=== PATIENT | male | born 1945 | race Caucasian/White ===

== ENCOUNTER 2017-08-28 15:30 | Inpatient (IN) | payer MEDICARE ==
[~2017-08-28] VITALS: Ht 172.7 cm; Wt 93.9 kg
[2017-08-28 15:51] VITALS: BP 106/69
[2017-08-28] MEDS ORDERED: ATOR20TA65 PO (15:56)
[2017-08-28] MEDS ORDERED: ALFU10TA18 PO (15:56)
[2017-08-28] MEDS ORDERED: DICL75TA5 PO (15:56)
[2017-08-28 15:58] LABS: BASOPHILS % (AUTO) 0.6 % (0.0-5.0); HEMATOCRIT 43.2 % (42-54); LYMPHOCYTES % (AUTO) 18.5 % (21.0-51.0); MEAN CORPUSCULAR HEMOGLOBIN 29.8 pg (27.0-33.0); MEAN CORPUSCULAR HGB CONC 34.3 g/dL (32.0-36.0); MEAN CORPUSCULAR VOLUME 86.9 fL (79-99); MONOCYTES % (AUTO) 7.6 % (3.0-13.0); NEUTROPHILS % (AUTO) 70.3 % (40.0-77.0); PLATELET COUNT (AUTO) 341 K/uL (130-400); RED BLOOD CELL COUNT(AUTO) 4.98 MIL/uL (4.50-6.20); RED CELL DISTRIBUTION WIDTH 13.5 % (11.0-15.5); WHITE BLOOD COUNT (AUTO) 6.5 K/uL (4.8-10.8)
[2017-08-28 16:14] LABS: POTASSIUM 4.1 mmol/L (3.5-5.1)
[2017-08-28 16:18] LABS: PARTIAL THROMBOPLASTIN TIME 27.2 SEC (26.3-35.5); PROTHROMBIN TIME 10.5 SEC (9.6-11.6)
[2017-08-28 16:24] LABS: APPEARANCE,URINE Clear (CLEAR); BILIRUBIN,URINE Negative (NEGATIVE); COLOR,URINE Yellow (YELLOW); GLUCOSE, URINE (UA) Negative (NEGATIVE); KETONES,URINE Negative (NEGATIVE); LEUKOCYTE ESTERASE ,URINE Moderate (NEGATIVE); NITRATE,URINE Negative (NEGATIVE); OCCULT BLOOD,URINE Negative (NEGATIVE); PH,URINE 5.5 (5.0-8.0); PROTEIN,URINE Negative (NEGATIVE)
[2017-08-28 17:26] LABS: BACTERIA,URINE Few /HPF (None Seen); MUCUS,URINE Rare LPF (None Seen); RBC,URINE 0-1 /HPF (0-1); SQUAMOUS EPITHELIAL CELL,UR Rare /LPF (0-2)
[2017-08-31] VITALS (16 sets, daily range): BP systolic 103–127; BP diastolic 62–85
[2017-08-31] MEDS ORDERED: GENTAMICIN SULFATE 240 MG in SODIUM CHLORIDE 0.9% 100 ML IV SCH (09:00)
[2017-08-31] MEDS ORDERED: LACTATED RINGERS 1000ML 1,000 ML IV ONE (12:49)
[2017-08-31] MEDS: CEFAZOLIN SODIUM 1 GM VIAL IVP SCH ×2 (13:15→16:00)
[2017-08-31] MEDS ORDERED: KETOROLAC TROMETHAMINE 15MG/ML ONE (14:55)
[2017-08-31] MEDS ORDERED: ACETAMINOPHEN EXTRA STRENGTH 500 MG TABLET ONE (14:55)
[2017-08-31] MEDS ORDERED: CELECOXIB 200 MG CAP ONE (14:55)
[2017-08-31] MEDS ORDERED: OXYCODONE HCL 10 MG TAB.SR.12H PO ONE (14:56)
[2017-08-31] MEDS ORDERED: DEXAMETHASONE SOD PHOSPHATE 10MG/ML 1ML VIAL ONE (15:47)
[2017-08-31] MEDS ORDERED: SUCCINYLCHOLINE 200MG/10ML SYR ONE (15:47)
[2017-08-31] MEDS ORDERED: LIDOCAINE PF 2% 5ML ABBOJECT ONE (15:47)
[2017-08-31] MEDS ORDERED: ONDANSETRON HCL 4 MG/2 ML VIAL ONE (15:47)
[2017-08-31] MEDS ORDERED: FENTANYL CITRATE PF 50 MCG/1 ML 2ML VIAL ONE (15:48)
[2017-08-31] MEDS ORDERED: PROPOFOL 10 MG/ML 20ML VIAL IV ONE (15:48)
[2017-08-31] MEDS ORDERED: MIDAZOLAM HCL 1 MG/ML 2ML VIAL ONE (15:48)
[2017-08-31] MEDS ORDERED: ROPIVACAINE 0.5% 5MG/ML 30ML IJ ONE (15:53)
[2017-08-31] MEDS ORDERED: CEFAZOLIN SODIUM 1 GM VIAL ONE (16:25)
[2017-08-31] MEDS: TRANEXAMIC ACID 1000MG/10ML IV ONE ×2 (16:30→19:50)
[2017-08-31] MEDS ORDERED: EPHEDRINE-NS PF 50MG/5ML SYRINGE IV ONE (17:37)
[2017-08-31] MEDS ORDERED: LIDOCAINE HCL-MPF 1% 2ML VIAL IVP PRN (19:30)
[2017-08-31] MEDS ORDERED: TEMAZEPAM 15 MG CAPSULE PO PRN (19:30)
[2017-08-31] MEDS ORDERED: POTASSIUM CHLORIDE 20MEQ/100ML 100 ML IV PRN (19:30)
[2017-08-31] MEDS ORDERED: PROMETHAZINE HCL 25 MG/ML 1ML AMPULE IM PRN (19:30)
[2017-08-31] MEDS ORDERED: OXYCODONE HCL 5 MG TAB PO PRN (19:30)
[2017-08-31] MEDS ORDERED: KETOROLAC TROMETHAMINE 15MG/ML IV PRN (19:30)
[2017-08-31] MEDS: ACETAMINOPHEN 325 MG TAB PO SCH (19:30)
[2017-08-31] MEDS ORDERED: CALCIUM CARBONATE 500 MG TABLET PO PRN (19:30)
[2017-08-31] MEDS ORDERED: DIPHENHYDRAMINE HCL 25 MG CAPSULE PO PRN (19:30)
[2017-08-31] MEDS ORDERED: DiphenhydrAMINE HCL 50 MG/ML VIAL IVP PRN (19:30)
[2017-08-31] MEDS ORDERED: TRAMADOL HCL 50 MG TABLET PO PRN (19:30)
[2017-08-31] MEDS ORDERED: FE FUMARATE/FA/MV, MIN COMB#15 1 TAB PO PRN (19:30)
[2017-08-31] MEDS ORDERED: POTASSIUM CHLORIDE 10% ELIXIR 20 MEQ/15 ML UDCUP PO PRN (19:30)
[2017-08-31] MEDS ORDERED: PHENYLEPHRINE HCL 10 MG/ML 1ML VIAL IV ONE (19:31)
[2017-08-31] MEDS: ALFUZOSIN HCL 10 MG PO SCH (21:00)
[2017-08-31] MEDS: CELECOXIB 200 MG CAP PO SCH (22:22)
[2017-08-31] MEDS: PREGABALIN 75 MG CAPSULE PO SCH (22:22)
[2017-08-31] MEDS: FAMOTIDINE 20MG TAB 20 MG TAB PO SCH (22:23)
[2017-08-31] MEDS: SODIUM CHLORIDE 0.9% 1000ML 1,000 ML IV SCH (22:23)
[2017-09-01] VITALS (8 sets, daily range): BP systolic 108–130; BP diastolic 71–86
[2017-09-01] MEDS ORDERED: CEFAZOLIN 2GM / 50 ML 50 ML IV SCH (00:30)
[2017-09-01] MEDS: CEFAZOLIN SODIUM 1 GM VIAL IVP SCH ×2 (01:07→10:07)
[2017-09-01] MEDS: ACETAMINOPHEN 325 MG TAB PO SCH ×4 (01:12→21:36)
[2017-09-01] MEDS: SODIUM CHLORIDE 0.9% 1000ML 1,000 ML IV SCH (05:25)
[2017-09-01 05:53] LABS: HEMATOCRIT 41.2 % (42-54); MEAN CORPUSCULAR HEMOGLOBIN 30.4 pg (27.0-33.0); MEAN CORPUSCULAR HGB CONC 34.4 g/dL (32.0-36.0); MEAN CORPUSCULAR VOLUME 88.4 fL (79-99); NUCLEATED RED BLOOD CELLS 0.1 % (0.0-0.19); PLATELET COUNT (AUTO) 287 K/uL (130-400); RED BLOOD CELL COUNT(AUTO) 4.66 MIL/uL (4.50-6.20); RED CELL DISTRIBUTION WIDTH 13.6 % (11.0-15.5); WHITE BLOOD COUNT (AUTO) 7.8 K/uL (4.8-10.8)
[2017-09-01 06:02] LABS: CREATININE 1.1 mg/dL (0.5-1.5); POTASSIUM 4.4 mmol/L (3.5-5.1)
[2017-09-01] MEDS ORDERED: CEFAZOLIN SODIUM 1 GM VIAL ONE (10:03)
[2017-09-01] MEDS: CELECOXIB 200 MG CAP PO SCH ×2 (10:08→21:34)
[2017-09-01] MEDS: OXYCODONE HCL 5 MG TAB PO PRN ×2 (10:08→17:45)
[2017-09-01] MEDS: TAMSULOSIN HCL 0.4 MG CAP.ER.24H PO SCH (10:08)
[2017-09-01] MEDS: PREGABALIN 75 MG CAPSULE PO SCH ×2 (10:08→21:35)
[2017-09-01] MEDS: FAMOTIDINE 20MG TAB 20 MG TAB PO SCH ×2 (10:08→21:34)
[2017-09-01] MEDS: POLYETHYLENE GLYCOL 3350 17 GM POWD.PACK PO SCH (10:08)
[2017-09-01] MEDS: ENOXAPARIN SODIUM 40 MG/0.4 ML SYRINGE SQ SCH (10:09)
[2017-09-01] MEDS: ATORVASTATIN CALCIUM 20 MG TABLET PO SCH (10:09)
[2017-09-01] MEDS: PSYLLIUM SEED 1 EACH PACKET PO SCH (11:58)
[2017-09-01] MEDS: ALFUZOSIN HCL 10 MG PO SCH (19:48)
[2017-09-02 00:40] VITALS: BP 122/76
[2017-09-02] MEDS: ACETAMINOPHEN 325 MG TAB PO SCH ×2 (04:31→10:59)
[2017-09-02 04:34] VITALS: BP 121/76
[2017-09-02 06:15] LABS: HEMATOCRIT 33.3 % (42-54); MEAN CORPUSCULAR HEMOGLOBIN 30.4 pg (27.0-33.0); MEAN CORPUSCULAR HGB CONC 35.1 g/dL (32.0-36.0); MEAN CORPUSCULAR VOLUME 86.4 fL (79-99); PLATELET COUNT (AUTO) 228 K/uL (130-400); RED BLOOD CELL COUNT(AUTO) 3.86 MIL/uL (4.50-6.20); RED CELL DISTRIBUTION WIDTH 13.5 % (11.0-15.5); WHITE BLOOD COUNT (AUTO) 6.1 K/uL (4.8-10.8)
[2017-09-02 06:19] LABS: CREATININE 1.1 mg/dL (0.5-1.5); POTASSIUM 3.4 mmol/L (3.5-5.1)
[2017-09-02] MEDS: POTASSIUM CHLORIDE 20 MEQ ERTAB PO PRN ×2 (06:52→10:59)
[2017-09-02 08:12] VITALS: BP 135/83
[2017-09-02] MEDS: PREGABALIN 75 MG CAPSULE PO SCH (08:43)
[2017-09-02] MEDS: TAMSULOSIN HCL 0.4 MG CAP.ER.24H PO SCH (08:43)
[2017-09-02] MEDS: ENOXAPARIN SODIUM 40 MG/0.4 ML SYRINGE SQ SCH (08:43)
[2017-09-02] MEDS: FAMOTIDINE 20MG TAB 20 MG TAB PO SCH (08:44)
[2017-09-02] MEDS: OXYCODONE HCL 5 MG TAB PO PRN (08:44)
[2017-09-02] MEDS: ATORVASTATIN CALCIUM 20 MG TABLET PO SCH (08:44)
[2017-09-02] MEDS: POLYETHYLENE GLYCOL 3350 17 GM POWD.PACK PO SCH (08:44)
[2017-09-02] MEDS: CELECOXIB 200 MG CAP PO SCH (08:44)
[2017-09-02] MEDS ORDERED: BISACODYL 5 MG TABLET.DR PO PRN ×2 (10:15→19:30)
[2017-09-02 11:59] VITALS: BP 128/92
[2017-09-02] MEDS ORDERED: HYDR-309 PO (12:45)
[2017-09-02] MEDS: PSYLLIUM SEED 1 EACH PACKET PO SCH (12:47)
[2017-09-03] MEDS ORDERED: BISACODYL 10 MG SUPP.RECT RC PRN (19:30)
== END 2017-09-02 16:39 | disposition home health service (06) | DRG 483 ==
LOC: EDSTATUS 15:30 → DAHIP 08-31 11:24 → 4AH 08-31 20:42
PROVIDERS: ADMIT Orthopaedic Surgery; ATTEND Orthopaedic Surgery
PROC: 0RRK00Z Replacement of Left Shoulder Joint with Reverse Ball and Socket Synthetic Substitute, Open Approach (ICD-10-PCS; principal; 2017-08-31 15:45)
DX: M19.012 Primary osteoarthritis, left shoulder (principal); H26.9 Unspecified cataract; Z91.048 Other nonmedicinal substance allergy status
CPT/HCPCS: 36415; 76000; 80048; 81001; 85025; 85027; 85610; 85730; 88304; 88311; 96365; A4218; A4565; J0330; J0690; J1100; J1580; J1650; J1885; J2001; J2250; J2370; J2405; J2704; J2795; J3010; J3490; J7030; J7120